=== PATIENT | female | born 1990 | race Caucasian/White ===

== ENCOUNTER 2019-07-19 09:56 | Inpatient (IN) | payer MEDICAID ==
[~2019-07-19] VITALS: Ht 162.6 cm; Wt 83.5 kg
[2019-07-19] MEDS ORDERED: IV RINGERS,LACTATED 1000ML 1,000 ML IV SCH (10:00)
[2019-07-19] MEDS ORDERED: OXYTOCIN 30 UNIT/500 ML PREMIX 500 ML IV PRN ×3 (10:15→11:30)
[2019-07-19] MEDS ORDERED: TERBUTALINE 1 MG/ML VIAL. SQ PRN (10:15)
[2019-07-19] MEDS ORDERED: fentaNYL PF VIAL 100 MCG/2 ML VIAL IVP PRN (10:15)
[2019-07-19] MEDS ORDERED: LIDOCAINE 1% PF 30 ML VIAL. INJ PRN (10:15)
[2019-07-19] MEDS ORDERED: 0.9 % SODIUM CHLORIDE 10 ML DISP.SYRIN. IV PRN ×2 (10:15→11:30)
[2019-07-19 10:45] LABS: BASO % 0 % (0-3); EOS # 0.1 x10^3/uL (0.0-0.7); EOS % 1 % (0-3); HEMATOCRIT 23.3 % (36.0-47.0); HEMOGLOBIN 7.1 g/dL (12.0-15.5); LYMPH % 16 % (24-48); MEAN CORPUSCULAR HEMOGLOBIN 22 pg (25-35); MEAN CORPUSCULAR HGB CONC 31 g/dL (31-37); MEAN CORPUSCULAR VOLUME 70 fL (79-100); MONO # 0.6 x10^3/uL (0.0-1.1); MONO % 5 % (0-9); NEUT # 9.5 x10^3/uL (1.8-7.7); NEUT % 78 % (31-73); PLATELET COUNT 377 x10^3/uL (140-400); RED BLOOD COUNT 3.32 x10^6/uL (3.50-5.40); RED CELL DISTRIBUTION WIDTH 21.2 % (11.5-14.5); WHITE BLOOD COUNT 12.2 x10^3/uL (4.0-11.0)
[2019-07-19 10:49] LABS: BARBITURATES NEG (NEG); BENZODIAZEPINES NEG (NEG); CANNABINOIDS NEG (NEG); COCAINE NEG (NEG); METHADONE NEG (NEG); OPIATES NEG (NEG); PHENCYCLIDINE NEG (NEG)
[2019-07-19 10:53] LABS: AMPHETAMINE/METHAMPHETAMINE POS (NEG)
[2019-07-19] MEDS ORDERED: ZOLPIDEM 5 MG TABLET. PO PRN (11:30)
[2019-07-19] MEDS ORDERED: ACETAMINOPHEN 325 MG TABLET. PO PRN (11:30)
[2019-07-19] MEDS ORDERED: MMR per PROTOCOL. MC PRN (11:30)
[2019-07-19] MEDS ORDERED: diphenhydrAMINE HCL 25 MG CAPSULE PO PRN (11:30)
[2019-07-19] MEDS ORDERED: MAG HYDROX/ALUMINUM HYD/SIMETH 30 ML ORAL.SUSP PO PRN (11:30)
[2019-07-19] MEDS ORDERED: HYDROCORTISONE 1% TOPICAL OINTMENT 30GM TUBE. TP PRN (11:30)
[2019-07-19] MEDS ORDERED: BENZOCAINE 20% TOPICAL AEROSOL SPRAY 57GM CAN. TP PRN (11:30)
[2019-07-19] MEDS ORDERED: TDaP (Adacel) per PROTOCOL. MC PRN (11:30)
[2019-07-19] MEDS ORDERED: MAGNESIUM HYDROXIDE 2,400 MG/30 ML ORAL.SUSP. PO PRN (11:30)
[2019-07-19] MEDS ORDERED: SIMETHICONE 80 MG TAB.CHEW PO PRN (11:30)
[2019-07-19] MEDS ORDERED: PHENYLEPH/MINERAL OIL/PETROLAT RECTAL OINTMENT TUBE. RC PRN (11:30)
[2019-07-19] MEDS ORDERED: IBUPROFEN 400 MG TABLET. PO PRN (11:30)
--- NOTE | 2019-07-19 12:30 | NUR ---
SS following up with referral for positive methamphetamine, no care, and homelessness. SS reviewed mother and chart. Mother admitted today and delivered. Mother UDS positive for Methamphetamine. RN reported that mother is homeless and has had no care. Mother is self pay. DCF hotline report made for positive drug screen, homelessness, and no care. Intake#[id number]. PAT team referral also made for substance use. Infant RN notified.
[2019-07-19 12:35] LABS: ANISOCYTOSIS MOD; HYPOCHROMIA MOD; MICROCYTOSIS MOD; PLT ESTIMATE ADEQUATE (ADEQUATE); POLYCHROMASIA SLIGHT
--- NOTE | 2019-07-19 13:43 | PDOC1 ---
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 The pt was found to be 7 cm on presentation. It was reported that the pt was picked up in a drug house by EMS. The pt has had no care throughout this . She only recently discovered she was after an u/s at [facility] 3 wks ago. She states that she did not realize she was b/c she has PCOS and has irregular cycles. She was given a EDC of 08/06 from the ER u/s. The pt states during the interview that she went to a [place] with her fiance yesterday and that she had been told one glass of EtOH was ok. PMH: elevated BP outside of PSH: gastric bypass Meds: None All: Codeine OBHx: 38 ([place]) SH: pos tob and EtOH Allergies: Coded Allergies: codeine (Verified Allergy, Unknown, Itching, 07/19/19) Physical Exam: PE: GENERAL: No apparent distress. Alert and oriented. HEENT: Head normocephalic, atraumatic. NECK: Supple LUNGS: Clear to auscultation. HEART: RRR, S1, S2 present, pulses intact ABDOMEN: Soft, positive bowel sounds. EXTREMITIES: No cyanosis or edema. NEUROLOGIC: Normal speech, normal tone PSYCHIATRIC: Normal affect, normal mood. SKIN: No ulceration. FHT: 120s +acels/no decels/mLTV [place]: 2-3 min SVE: 7/C/0 Labs: Laboratory Tests Test 07/19/19 10:05 07/19/19 10:20 White Blood Count 12.2 x10^3/uL (4.0-11.0) H Red Blood Count 3.32 x10^6/uL (3.50-5.40) L Hemoglobin 7.1 g/dL (12.0-15.5) L Hematocrit 23.3 % (36.0-47.0) L Mean Corpuscular Volume 70 fL (79-100) L Mean Corpuscular Hemoglobin 22 pg (25-35) L Mean Corpuscular Hemoglobin Concent 31 g/dL (31-37) Red Cell Distribution Width 21.2 % (11.5-14.5) H Platelet Count 377 x10^3/uL (140-400) Neutrophils (%) (Auto) 78 % (31-73) H Lymphocytes (%) (Auto) 16 % (24-48) L Monocytes (%) (Auto) 5 % (0-9) Eosinophils (%) (Auto) 1 % (0-3) Basophils (%) (Auto) 0 % (0-3) Neutrophils # (Auto) 9.5 x10^3/uL (1.8-7.7) H Lymphocytes # (Auto) 2.0 x10^3/uL (1.0-4.8) Monocytes # (Auto) 0.6 x10^3/uL (0.0-1.1) Eosinophils # (Auto) 0.1 x10^3/uL (0.0-0.7) Basophils # (Auto) 0.0 x10^3/uL (0.0-0.2) Platelet Estimate Adequate (ADEQUATE) Giant Platelets Occ Polychromasia Slight Hypochromasia Mod Anisocytosis Mod Microcytosis Mod Treponema pallidum Antibody Nonreactive (Nonreactive) Hepatitis B Surface Antigen Nonreactive (Nonreactive) Hepatitis C IgG Antibody Nonreactive (Nonreactive) HIV (1&2) Antibody Screen Nonreactive (Nonreactive) Urine Opiates Screen Neg (NEG) Urine Methadone Screen Neg (NEG) Urine Barbiturates Neg (NEG) Urine Phencyclidine Screen Neg (NEG) Urine Amphetamine/Methamphetamine Pos (NEG) Urine Benzodiazepines Screen Neg (NEG) Urine Cocaine Screen Neg (NEG) Urine Cannabinoids Screen Neg (NEG) Urine Ethyl Alcohol Neg (NEG) Laboratory Tests 07/19/19 10:05 Laboratory Tests 07/19/19 10:05 Assessment & Plan: A/P 29y @ 37.2 by 34wk u/s 1.) Active labor pt continues to push despite being advised to stop until complete 2.) No care drop in labs ordered 3.) UDS pos for meth 4.) Anemia Hgb 7.1 5.) Rh neg 6.) Codeine All 7.) Fetus cat I FHT, concerns that the baby may actually be IUGR (based on hx) 8.) GBS unk no risk factors DAVID QUINTANILLA MD 3, 2020 13:43
--- NOTE | 2019-07-19 13:44 | PDOC ---
VAGINAL DELIVERY DATE DATE: 07/19/19 TIME: 13:44 TIME The pt arrive around 10 am. On presentation the pt was found to be 7 cm dilated. Since admission the pt has been pushing with contractions despite her cervix not being completely dilated. The pt was advised to stop, but she could not resist the sensation. At 1100. The pt began to push more forcefully and was found to be 9 cm. The bed was broken down to allow for pushing. The patient delivered a viable female infant over intact perineum at 1103. Wt 5lb 11oz. Apgars 8/9. While applying light traction to the cord, the cord avulsed. Due to the pts poor pain control and the concerns of giving narcotics with a positive drug test a manual extraction could not be performed. The placenta was grabbed digitally at the external cervical os. Once the placenta had been grasped digitally it was grasped with ring forceps and delivered. The placenta was intact with 3VC. No lacerations were noted. Good hemostasis noted. 20U of Pitocin infused with IVF. EBL 400cc. Since the extraction of the placenta did not involve entering the uterine cavity prophylactic antibiotics were not administered. WEIGHT Weight [ ] DAVID QUINTANILLA MD Jul 19, 2019 13:44
[2019-07-19 13:49] VITALS: BP 132/60
[2019-07-19] MEDS: IBUPROFEN 400 MG TABLET. PO PRN ×2 (13:59→22:57)
[2019-07-19 16:00] VITALS: BP 130/62
[2019-07-19 20:00] VITALS: BP 100/68
[2019-07-19] MEDS: oxyCODONE/APAP 5/325 1 TAB TABLET PO PRN (22:57)
[2019-07-20 02:30] VITALS: BP 114/47
--- NOTE | 2019-07-20 04:53 | NUR ---
Dr Durbin phoned with critical results from am lab draw. Hgb 6.2, Hct 20.5. Orders given for 1 unit of PRBC's.
[2019-07-20 05:00] VITALS: BP 119/70
[2019-07-20] MEDS: DOCUSATE SODIUM 100 MG CAPSULE. PO PRN ×2 (05:48→10:20)
[2019-07-20] MEDS: oxyCODONE/APAP 5/325 1 TAB TABLET PO PRN ×3 (05:48→14:38)
[2019-07-20] MEDS: IBUPROFEN 400 MG TABLET. PO PRN ×2 (05:48→14:39)
[2019-07-20 07:15] LABS: HEMATOCRIT 20.5 % (36.0-47.0); HEMOGLOBIN 6.2 g/dL (12.0-15.5)
[2019-07-20] MEDS ORDERED: FERROUS SULFATE 325 MG TABLET. PO SCH (08:00)
[2019-07-20 08:57] VITALS: BP 114/66
--- NOTE | 2019-07-20 09:05 | PDOC ---
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 Pt with good pain control. Alycia PO. Voiding. Minimal lochia. Objective: Vital Signs: Vital Signs Date Time Temp Pulse Resp B/P (MAP) Pulse Ox O2 Delivery O2 Flow Rate FiO2 07/19/19 13:49 97.5 85 22 132/60 (84) 100 Room Air 97.5 Vital Signs Date Time Temp Pulse Resp B/P (MAP) Pulse Ox O2 Delivery O2 Flow Rate FiO2 07/20/19 08:57 97.9 89 17 114/66 (82) 97.9 07/20/19 05:00 97 Room Air Labs: Laboratory Tests Test 07/19/19 10:05 07/19/19 10:20 07/19/19 11:29 07/20/19 04:36 White Blood Count 12.2 x10^3/uL (4.0-11.0) H Red Blood Count 3.32 x10^6/uL (3.50-5.40) L Hemoglobin 7.1 g/dL (12.0-15.5) L 6.2 g/dL (12.0-15.5) *L Hematocrit 23.3 % (36.0-47.0) L 20.5 % (36.0-47.0) *L Mean Corpuscular Volume 70 fL (79-100) L Mean Corpuscular Hemoglobin 22 pg (25-35) L Mean Corpuscular Hemoglobin Concent 31 g/dL (31-37) 30 g/dL (31-37) L Red Cell Distribution Width 21.2 % (11.5-14.5) H Platelet Count 377 x10^3/uL (140-400) Neutrophils (%) (Auto) 78 % (31-73) H Lymphocytes (%) (Auto) 16 % (24-48) L Monocytes (%) (Auto) 5 % (0-9) Eosinophils (%) (Auto) 1 % (0-3) Basophils (%) (Auto) 0 % (0-3) Neutrophils # (Auto) 9.5 x10^3/uL (1.8-7.7) H Lymphocytes # (Auto) 2.0 x10^3/uL (1.0-4.8) Monocytes # (Auto) 0.6 x10^3/uL (0.0-1.1) Eosinophils # (Auto) 0.1 x10^3/uL (0.0-0.7) Basophils # (Auto) 0.0 x10^3/uL (0.0-0.2) Platelet Estimate Adequate (ADEQUATE) Giant Platelets Occ Polychromasia Slight Hypochromasia Mod Anisocytosis Mod Microcytosis Mod Treponema pallidum Antibody Nonreactive (Nonreactive) Hepatitis B Surface Antigen Nonreactive (Nonreactive) Hepatitis C IgG Antibody Nonreactive (Nonreactive) HIV (1&2) Antibody Screen Nonreactive (Nonreactive) Rubella IgG Antibody <0.90 index (Immune >0.99) Varicella-Zoster IgG Antibody 290 index (Immune >165) Urine Opiates Screen Neg (NEG) Urine Methadone Screen Neg (NEG) Urine Barbiturates Neg (NEG) Urine Phencyclidine Screen Neg (NEG) Urine Amphetamine/Methamphetamine Pos (NEG) Urine Benzodiazepines Screen Neg (NEG) Urine Cocaine Screen Neg (NEG) Urine Cannabinoids Screen Neg (NEG) Urine Ethyl Alcohol Neg (NEG) Coronavirus (COVID-19)(PCR) Negative (NEGATIVE) Laboratory Tests 07/19/19 10:05 07/20/19 04:36 Laboratory Tests 07/19/19 10:05 07/20/19 04:36 Physical Exam: GENERAL: No apparent distress. Alert and oriented. HEENT: Head normocephalic, atraumatic. NECK: Supple LUNGS: Clear to auscultation. HEART: RRR, S1, S2 present, pulses intact ABDOMEN: Soft, positive bowel sounds. EXTREMITIES: No cyanosis or edema. NEUROLOGIC: Normal speech, normal tone PSYCHIATRIC: Normal affect, normal mood. SKIN: No ulceration. FFNT below umb no C/C/E Assessment & Plan: A/P 29y PPD #1 s/p 1.) PP doing well 2.) Anemia Hgb 7.1 -> 6.2, will give pt 1U pRBC 3.) Cord avulsion no s/s of endometritis 4.) No care drop in labs reviewed 5.) UDS pos for meth - social work consulted 6.) Rh neg Rhogam prior to d/c 7.) Rub Imm MMR prior to d/c 8.) Codeine All 9.) Cont PP care DAVID QUINTANILLA MD Jul 20, 2019 09:05
[2019-07-20 09:18] VITALS: BP 117/79
--- NOTE | 2019-07-20 10:03 | NUR ---
SS following up with discharge planning. SS in communication with DCF worker, Rosalie Zimmerman, . Rosalie spoke with mother yesterday. She has scheduled a meeting with her chimney construction supervisor at 1100 this morning to discuss case and develop a plan. Rosalie reported that she would contact SS later today and discuss plan and timeline. RN notified. SS will continue to follow.
[2019-07-20] MEDS: FERROUS SULFATE 325 MG TABLET. PO SCH ×2 (10:20→17:13)
[2019-07-20 10:24] VITALS: BP 109/70
--- NOTE | 2019-07-20 13:10 | NUR ---
Spoke with SS. Stated that they are speaking with Karla [employer] rep assigned to case for referral about meds.
--- NOTE | 2019-07-20 13:13 | NUR ---
SS following up with DCF referral. SS received phone contact from DCF worker, Rosalie Zimmerman, stating that they are filing paperwork and submitting request to the court to bring into DCF custody. She reported that it take 24-[address] orders and once received infant will be picked up by [facility] worker. RN notified. SS faxed certificate to Rosalie at fax [phone]. SS will continue to follow.
[2019-07-20 14:24] VITALS: BP 109/74
--- NOTE | 2019-07-20 16:08 | NUR ---
pt has been asleep majority of the day execept during meal time and requesting pain meds.
[2019-07-20] MEDS ORDERED: DOCU-109 PO (18:11)
[2019-07-20] MEDS ORDERED: IBUP-1060 PO (18:11)
[2019-07-20] MEDS ORDERED: FERR325T3 PO (18:13)
--- NOTE | 2019-07-20 18:15 | NUR ---
Pt advised that CBC is needed due to blood being given. Risk of going AMA discussed bleeding, , DCF issues will look worse since she is refusing treatment.Pt refuses to sign AMA papers.
--- NOTE | 2019-07-20 18:28 | NUR ---
Pt left ama and refused to sign papers. Dr Durbin notified of pt desiring AMA .Dr Durbin stated he would discharge her if she consented to CBC since she received blood this morning. Pt refused CBC. Security on the floor. Pt walked to the door.
--- NOTE | 2019-07-21 04:16 | DS ---
DATE OF DISCHARGE: 07/20/2019 ADMISSION DIAGNOSES: 1. Intrauterine at 37 weeks and 2 days by 34-week ultrasound. 2. Active labor. 3. No care. 4. A urine drug screen positive for methamphetamine. 5. Anemia. 6. Rh negative. 7. Rubella nonimmune. 8. CODEINE allergy. 9. GBS unknown. DISCHARGE DIAGNOSES 1. Intrauterine at 37 weeks and 2 days by 34-week ultrasound. 2. Active labor. 3. No care. 4. A urine drug screen positive for methamphetamine. 5. Anemia. 6. Rh negative. 7. Rubella nonimmune. 8. CODEINE allergy. 9. GBS unknown. 10. Leaving against medical advice. PROCEDURE: Spontaneous vaginal delivery. BRIEF HOSPITAL COURSE: The patient is a 29-year-old 2, para 1-0-0-1, who presented to Labor and Delivery at 37 weeks and 2 days by 34-week ultrasound by EMS. On presentation, the patient was 7 cm dilated. The patient was reported to be picked up at a drug counts by EMS. The patient had had no care throughout her and stated that only recently she discovered she was in [place] [facility] approximately 3 weeks ago. One of the reasons why the patient did not realize she was is because she had PCOS with irregular cycles. At the ER, she was given an EDC of 08/06. The patient was maurilio regularly and pushed throughout her contractions despite not being complete. The patient ultimately reached 9 cm and the bed was broken down and pushing was initiated. The patient delivered shortly thereafter. See delivery note for full detail. Of note, the patient's hemoglobin on presentation was 7.1 and dropped to 6.4. The patient received 1 unit of packed red blood cells. Of note, also with her delivery, the patient had avulsed cord. Since the placenta was extracted without reaching into the uterus, the patient was not started on prophylactic antibiotics. The patient did not have any signs or symptoms of endomyometritis during her hospital course. On day #1, she was informed by social work that she would not be able to go home with her baby. At that point, the patient desired discharge home. Despite just receiving blood that morning, the patient would not even stay for a post-transfusion CBC. The patient did receive RhoGAM but was refusing the MMR for her Rubella nonimmune status. DISCHARGE INSTRUCTIONS: The patient was told not to lift anything greater than 20 pounds, have pelvic rest for 6 weeks. The patient is to call if she had fevers, chills, nausea, vomiting, abdominal pain or any additional questions or concerns. FOLLOWUP APPOINTMENT: The patient is to follow up with Dr. Quintanilla in 6 weeks' time for a appointment. DISCHARGE MEDICATIONS: The patient was given a prescription for Motrin 800 mg 30 pills, Colace 100 mg 30 pills and ferrous sulfate 325 mg 30 pills. DAVID QUINTANILLA MD DR: BONNY/nts JOB#: [id number] / [id number]
--- NOTE | 2019-07-24 16:06 | PATHOLOGY ---
[facility] Accession Number: [id number] . 01 Material submitted: . placenta - PLACENTA AND CORD . 01 Clinical history: . Term , vaginal delivery, no PNC, L2; cord avulsion; manual removal of placenta. Please see delivery summary. . 02 Diagnosis: 513 gram early term placenta of an estimated 37.2 weeks gestation with partially detached membranes and detached segments of umbilical cord: - Marginal/velamentous insertion of umbilical cord. - Peripheral placental infarct. - Focally increased perivillous fibrin deposition with focal avascular villi. - Septal cyst. LBQ 07/24/2019 1444 Local . 02 Comment: There is no evidence of an acute chorioamnionitis. (JPM/db; 07/21/2019) . 02 Electronically signed: . Larry Layne MD, Pathologist NPI- [id number] . 01 Gross description: . Received in formalin labeled "Saxena, Annamarie, placenta" is a gudino placenta with partially detached membranes and detached umbilical cord. The placental disc measures 23.4 x 12.2 x 4.0 cm. The membranes are transparent and thin with the site of membrane rupture unable to be determined. The membranes have marginal insertion. The umbilical cord is received separately, attached to membranes, and measures 11.3 cm in length and 1.6 cm in diameter. A separate segment of umbilical cord is present within the container measuring 15.4 cm in length and 1.7 cm in diameter. The umbilical cord has three vessels. There are no true knots in the umbilical cord. The umbilical cord insertion site is not definitively identified, but probably marginal or velamentous. The large umbilical vessels extend to the margin of the placental disc on the surface. The trimmed placental weight is 513 grams. The surface is blue-meneses with moderate subchorionic fibrin. Amnion nodosum is not present. Cysts are not present. The maternal surface has intact cotyledons and no basal hemorrhage. Sectioning through the placental disc reveals at least four yellow-nelson lesions ranging from 0.9 up to 2.0 cm in greatest dimension and comprising less than 10% of the placental tissue. A cyst is also identified in the central placenta, measuring 1.7 cm in greatest dimension. Glass Loading Equipment Tender sections are submitted as follows: . A1 proximal and distal umbilical cord A2 membranes, rolled A3 financial service representative peripheral placenta with infarct A4 financial service representative central placenta with cyst A5 additional maternal surface A6 surface adjacent to umbilical cord insertion site ([facility]; 07/20/2019) [facility] 07/21/2019 1641 Local . 02 Pathologist provided ICD-10: O43.813, O43.893, Z37.0, Z3A.00 . 02 CPT . 112272 Specimen Comment: A courtesy copy of this report has been sent to [phone] Specimen Comment: Report sent to Performed at: 01 [facility] [address], [place] [id number] MD Henrique Maza MD Phone: [phone] Performed at: 02 [facility] [address], [place] [id number] MD Larry Layne MD Phone: [phone]
== END 2019-07-20 18:25 | disposition left against medical advice (07) | DRG 807 ==
LOC: 3 SO LND 09:56 → 3 NORTH 17:27
PROVIDERS: ADMIT Obstetrics & Gynecology; ATTEND Obstetrics & Gynecology
PROC: 10D07Z8 Extraction of Products of Conception, Other, Via Natural or Artificial Opening (ICD-10-PCS; principal; 2019-07-19)
PROC: 3E0234Z Introduction of Serum, Toxoid and Vaccine into Muscle, Percutaneous Approach (ICD-10-PCS; 2019-07-20)
PROC: 30233N1 Transfusion of Nonautologous Red Blood Cells into Peripheral Vein, Percutaneous Approach (ICD-10-PCS; 2019-07-20)
DX: O99.02 Anemia complicating childbirth (principal); Z37.0 Single live birth; O99.844 Bariatric surgery status complicating childbirth; D64.9 Anemia, unspecified; O26.893 Other specified pregnancy related conditions, third trimester; Z3A.37 37 weeks gestation of pregnancy; O99.334 Smoking (tobacco) complicating childbirth; F17.210 Nicotine dependence, cigarettes, uncomplicated; O69.89X0 Labor and delivery complicated by other cord complications, not applicable or unspecified; Z88.5 Allergy status to narcotic agent; Z67.11 Type A blood, Rh negative; Z20.828 Contact with and (suspected) exposure to other viral communicable diseases
CPT/HCPCS: 36415; 80307; 85014; 85018; 85025; 85461; 86592; 86703; 86762; 86787; 86803; 86850; 86900; 86901; 86920; 87340; J2791; P9016; G0378; U0003-CS